=== PATIENT | female | born 1935 | race Caucasian/White ===

== ENCOUNTER → 2017-08-24 | Outpatient (CLI) | payer MEDICARE ==
[2017-08-24 15:29] LABS: Blood Urea Nitrogen 17 mg/dL (7-17); Non-African American GFR(MDRD) >60 (>60 ml/min/1.73 sqM)
--- NOTE | 2017-08-24 16:07 | CT ---
EXAMINATION TYPE: CT angio chest DATE OF EXAM: 08/24/2017 COMPARISON: NONE HISTORY: Difficulty breathing CT DLP: 557 mGycm. Automated Exposure Control for Dose Reduction was Utilized. CONTRAST: CTA scan of the thorax is performed with IV Contrast, patient injected with 100 mL of Omnipaque 350, pulmonary embolism protocol. MIP Images are created on CT scanner and reviewed. FINDINGS: LUNGS: Innumerable bilateral pulmonary nodules are seen within all lobes. The largest most confluent nodule is present within the left upper lobe with retraction of the adjacent interlobar fissure. This measures 0.9 x 0.9 cm on series 11 image 49. There is no pleural effusion or pneumothorax seen. The tracheobronchial tree is patent. MEDIASTINUM: There is satisfactory enhancement of the pulmonary artery and its branches, there is no CT evidence for pulmonary embolism. There are no greater than 1 cm hilar or mediastinal lymph nodes. No cardiomegaly or pericardial effusion is seen. The main pulmonary artery and aorta are not enlar ged measuring 2.6 cm and 3.0 cm respectively. OTHER: Small hiatal hernia is noted. Approximately 1.3 cm partially exophytic left upper pole central ly low attenuating left renal lesion is suspicious on series 5 image 126, series 7 image 23, and seri es 10 image 112. Anterior to this there is a subcentimeter renal cysts. Mild multilevel degenerative changes of the thoracic spine are noted. IMPRESSION: 1. No evidence of ulnar embolus. 2. Innumerable bilateral spiculated pulmonary nodules that should be considered metastatic disease un til proven otherwise. Alternatively and considered much less likely are the possibilities of granulom atous disease, infectious or inflammatory nodules, or septic emboli. 3. Suspicious left upper pole renal lesion, incompletely characterized on the current examination. Th ree-phase abdominal CT or MR could be performed for further characterization. A Yellow message has been communicated to Bob Bradshaw DO via the [employer] Critical Result system on 08/24/2017 4:05 PM, Message ID [id number].
== END | disposition home or self-care (01) ==
LOC: RADCTMAIN 14:51
PROVIDERS: ATTEND Internal Medicine Critical Care Medicine
DX: R91.8 Other nonspecific abnormal finding of lung field (principal); Z86.711 Personal history of pulmonary embolism
CPT/HCPCS: 82565; 84520; 71275; 36415; Q9967

== ENCOUNTER → 2022-03-13 | Outpatient (CLI) | payer MEDICARE, OTHER ==
--- NOTE | 2022-03-13 12:07 | XR ---
EXAMINATION TYPE: XR thoracic spine 3 views complete, XR lumbar spine 3V DATE OF EXAM: 03/13/2022 Comparison: None Clinical History: 86-year-old female [id number] Fall Contusion to spine Findings: Thoracic spine: Osteopenia. Moderate degenerative disc disease mid thoracic spine with slight accentuated kyphosis. V ertebral body heights are preserved and alignment is maintained. Assess cardiac calcifications abdomi nal aorta. Lumbar spine: Osteopenia. Rightward truncal shift. Hypertrophic facet arthropathy throughout with grade 1, nearly g rade 2 anterolisthesis L4-L5. Mild multilevel degenerative disc disease. Atherosclerotic calcificatio ns throughout the abdominal aorta. Vertebral body heights are preserved. Impression: 1. Thoracic spine: Moderate degenerative disc disease mid thoracic spine with slight accentuated kyph osis. No vertebral compression collapse or malalignment. 2. Lumbar spine: Rightward truncal shift could be positional or due to muscle spasm. No vertebral com pression collapse. Hypertrophic facet arthropathy with degenerative grade 1, nearly grade 2 anterolis thesis at L4-L5. Mild degenerative disc disease throughout.
== END | disposition home or self-care (01) ==
LOC: RADXRMAIN 08:54
PROVIDERS: ATTEND Family Medicine
DX: S30.0XXA Contusion of lower back and pelvis, initial encounter (principal); M51.34 Other intervertebral disc degeneration, thoracic region; M51.36 Other intervertebral disc degeneration, lumbar region; X58.XXXA Exposure to other specified factors, initial encounter
CPT/HCPCS: 72072; 72100